=== PATIENT | female | born 1995 | race African-American/Black ===

== ENCOUNTER 2017-01-15 15:08 | Emergency (ER) | payer MEDICAID ==
[~2017-01-15] VITALS: Ht 172.7 cm; Wt 68.0 kg
[~2017-01-15 15:08] MED LIST: IBUPROFEN600 MG PO; VALIUM5 MG ORAL
[2017-01-15] MEDS ORDERED: NKM (15:41)
[2017-01-15] MEDS ORDERED: ROBAXIN-750750 MG PO (16:23)
[2017-01-15] MEDS ORDERED: IBUPROFEN600 MG ORAL (16:23)
[2017-01-15] MEDS ORDERED: Methocarbamol 750mg tab ORAL ONE (16:30)
[2017-01-15 17:00] VITALS: BP 102/72
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
== END 2017-01-15 17:00 | disposition home or self-care (01) ==
LOC: EMR 15:56
DX: T14.8 Other injury of unspecified body region (principal); M54.2 Cervicalgia; M25.511 Pain in right shoulder; M25.551 Pain in right hip; V43.52XA Car driver injured in collision with other type car in traffic accident, initial encounter; Y92.9 Unspecified place or not applicable; Y99.8 Other external cause status
CPT/HCPCS: 99284

== ENCOUNTER 2017-09-27 16:52 | Emergency (ER) | payer MEDICAID ==
[~2017-09-27] VITALS: Ht 172.7 cm; Wt 68.0 kg
[~2017-09-27 16:52] MED LIST changes: +IBUPROFEN600 MG ORAL; +NKM; +ROBAXIN-750750 MG PO
[2017-09-27 17:30] VITALS: BP 118/72
[2017-09-27] MEDS ORDERED: DEPO (17:31)
[2017-09-27] MEDS ORDERED: Methocarbamol 750mg tab ORAL ONE (17:45)
[2017-09-27] MEDS ORDERED: ROBAXIN-750750 MG PO (18:11)
[2017-09-27] MEDS ORDERED: IBUPROFEN600 MG ORAL (18:11)
[2017-09-27 18:16] VITALS: BP 122/74
[2017-09-27 18:17] VITALS: BP 122/74
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
--- NOTE | 2017-09-28 11:17 | Diagnostic Imaging Report ---
Indication: PAIN Technique: 3 views of the right elbow Comparison: none Findings: No acute fractures. No dislocations. No joint effusion. Joint spaces are preserved. Normal mineralization. No radiopaque foreign body. Impression: Negative
== END 2017-09-27 18:15 | disposition home or self-care (01) ==
LOC: MERGE 17:30 → EMR 17:30
DX: M25.521 Pain in right elbow (principal); T14.8XXA Other injury of unspecified body region, initial encounter; V49.9XXA Car occupant (driver) (passenger) injured in unspecified traffic accident, initial encounter; Y93.9 Activity, unspecified; Y92.9 Unspecified place or not applicable; M54.2 Cervicalgia; M54.9 Dorsalgia, unspecified
CPT/HCPCS: 99284